=== PATIENT | female | born 1985 | race Caucasian/White ===

== ENCOUNTER 2020-02-24 17:20 | Emergency (ER) | payer SELFPAY ==
[2020-02-24 17:20] VITALS: BP 160/108; PULSE 78; RESP 18; TEMP 36.6; O2SAT 99; BMI 37.6
--- NOTE | 2020-02-24 17:46 | ED.RN ---
AFTER STARING TRIAGE, PT DECIDED SHE DID NOT WANT TO BE SEEN IN THE EMERGENCY DEPARTMENT, DECLINES ANY KIND OF MEDICAL TX. STATES SHE DOES NOT THINK INJURY IS SERIOUS ENOUGH TO REQUIRE TX.
== END 2020-02-24 17:46 | disposition left against medical advice (07) ==
LOC: ED 17:52
PROVIDERS: Emergency Provider Emergency Medicine; PCP Family Medicine
DX: R69 Illness, unspecified (principal); Z53.21 Procedure and treatment not carried out due to patient leaving prior to being seen by health care provider